=== PATIENT | female | born 1945 | race Native Hawaiian/Other Pacific Islander ===

== ENCOUNTER 2018-05-02 11:56 | Outpatient (CLI) | payer OTHER | END 2018-05-02 19:01 | disposition home or self-care (01) | LOC: RAD 11:56 | DX: M25.562 Pain in left knee (principal) ==

== ENCOUNTER 2022-02-20 08:44 | Outpatient (CLI) | payer OTHER | END 2022-02-20 18:50 | disposition home or self-care (01) | LOC: CT 08:44 | PROVIDERS: ATTEND Nurse Practitioner | DX: R20.2 Paresthesia of skin (principal) | CPT/HCPCS: 36415; 82565; 84520; Q9963 ==

== ENCOUNTER 2023-01-20 10:49 | Inpatient (IN) | payer OTHER ==
[~2023-01-20] VITALS: Ht 154.9 cm; Wt 93.9 kg
[2023-01-20 10:49] VITALS: BP 164/64; TEMP 97.9
[2023-01-20 11:23] LABS: PLATELET COUNT 285 K/uL (152-353)
[2023-01-20 11:31] LABS: POTASSIUM 4.5 mmol/L (3.6-5.2)
[2023-01-20 14:49] VITALS: BP 154/82
[2023-01-20 15:37] VITALS: BP 154/82; TEMP 97.9
[2023-01-20] MEDS ORDERED: ROPINIROLE0.25 MG PO (16:43)
[2023-01-20] MEDS ORDERED: HYDR5TAB9 PO (16:43)
[2023-01-20] MEDS ORDERED: LIPITOR20 MG PO (16:43)
[2023-01-20] MEDS ORDERED: BAYER ASPIRIN325 MG PO (16:44)
[2023-01-20] MEDS ORDERED: ESOM40CA PO (16:44)
[2023-01-20] MEDS ORDERED: GABA300C2 PO (16:45)
[2023-01-20] MEDS ORDERED: LOSA50TA PO (16:45)
[2023-01-20] MEDS ORDERED: ESCI10TA PO (16:45)
[2023-01-20] MEDS ORDERED: NP THYROID30 MG PO (16:46)
== END 2023-01-20 18:25 | disposition short-term general hospital (02) | DRG 64 ==
LOC: ED 10:49 → MED/SURG 12:04
PROVIDERS: ADMIT Family Medicine; ATTEND Internal Medicine
DX: I63.9 Cerebral infarction, unspecified (principal); G93.6 Cerebral edema; R29.810 Facial weakness; R53.1 Weakness; R29.6 Repeated falls; I10 Essential (primary) hypertension; I25.10 Atherosclerotic heart disease of native coronary artery without angina pectoris
CPT/HCPCS: 36415; 80053; 80307; 81002; 85027; 93005; 96372; 99283; J1650